=== PATIENT | male | born 1945 | race Caucasian/White ===

== ENCOUNTER 2018-02-17 16:51 | Emergency (ER) | payer OTHER ==
--- NOTE | 2018-02-17 17:00 | PDOC ---
Rapid Medical Evaluation Time Seen by Provider: 02/17/18 16:58 Medical Evaluation: 02/17/18 16:58 I have performed a brief in-person evaluation of this patient. The patient presents with a chief complaint of: right leg swelling ascending up leg x 1 month after being bitten by a bug while working in the garden. Complaining of knee pain and redness of lower leg Pertinent physical exam findings are: NAD even and labored breathing right lower leg edematous and red I have ordered the following: ultrasound of lower leg and labs The patient will proceed o the Ed for further evaluation. 02/17/18 17:04
[2018-02-17 17:03] VITALS: TEMP 98; BMI 33.9
[2018-02-17 17:43] LABS: BASO % 1.3 % (0-2.0); EOS % 3.5 % (0-4.5); HEMOGLOBIN 13.5 GM/dL (11.7-16.9); LYMPH % 22.6 % (8-40); MCH 29.9 pg (25.7-33.7); MCHC 33.7 g/dl (32.0-35.9); MEAN CELL VOLUME 88.7 fl (80-96); MEAN PLT VOLUME 8.3 fl (7.5-11.1); MONO % 9.4 % (3.8-10.2); NEUT % 63.2 % (42.8-82.8); PLATELET COUNT 251 K/MM3 (134-434); RBC 4.51 M/mm3 (4.00-5.60); RDW 14.4 % (11.9-15.9); WHITE BLOOD COUNT 8.4 K/mm3 (4.0-10.0)
[2018-02-17 18:21] LABS: ALBUMIN 3.8 g/dl (3.4-5.0); ANION GAP 10 MMOL/L (8-16); BILIRUBIN,TOTAL 0.4 mg/dL (0.2-1.0); BLOOD UREA NITROGEN 20 mg/dL (7-18); CALCIUM 8.6 mg/dL (8.5-10.1); CHLORIDE 109 mmol/L (98-107); CO2 26 mmol/L (21-32); CREATININE 1.1 mg/dL (0.7-1.3); GLUCOSE,RANDOM 80 mg/dL (74-106); POTASSIUM 4.5 mmol/L (3.5-5.1); SGOT/AST 19 U/L (15-37); SGPT/ALT 22 U/L (12-78); SODIUM 145 mmol/L (136-145); TOT PROT 7.1 g/dl (6.4-8.2)
[2018-02-17 18:22] LABS: ALK PHOS 74 U/L (45-117)
[2018-02-17] MEDS ORDERED: APIXABAN 5 MG TABLET PO ONE (19:18)
--- NOTE | 2018-02-17 19:25 | PDOC ---
History of Present Illness <Monica Shoemaker - Last Filed: 02/17/18 19:18> - General History Source: Patient Exam Limitations: No Limitations - History of Present Illness Initial Comments: 02/17/18 20:02 The patient is a 72-year-old male, with no past medical history, who presents to the ED with RLE swelling and tightness behind his leg that began 3 weeks ago. During this time, the patient reports that he was gardening and noted a bug bite to his leg; he denies seeing the bug or a tick. Since then his leg has become progressively more swollen. He denies any recent travel or DVTs. The patient denies any fever, chills, nausea, vomiting, diarrhea, constipation, or abdominal pain. Denies chest pain, shortness of breath, headache and dizziness. Allergies: NKA Surgical History: Appendectomy. Social History: None reported. PCP: Dr. Atul Baig <Yee Bergeron - Last Filed: 02/17/18 20:39> - General Chief Complaint: Edema Stated Complaint: BITE Time Seen by Provider: 02/17/18 16:58 Past History - Past Medical History COPD: No - Surgical History Appendectomy: Yes - Suicide/Smoking/Psychosocial Hx Smoking History: Former smoker Have you smoked in the past 12 months: No Information on smoking cessation initiated: No <Monica Shoemaker - Last Filed: 02/17/18 19:18> <Yee Bergeron - Last Filed: 02/17/18 20:39> - Past Medical History Allergies/Adverse Reactions: Allergies Allergy/AdvReac Type Severity Reaction Status Date / Time No Known Allergies Allergy Verified 02/17/18 16:59 Home Medications: Ambulatory Orders Apixaban [Eliquis -] 10 mg PO BID #28 tablet 02/17/18 Multivitamin [Multiple Vitamins] 1 each PO DAILY 02/17/18 Review of Systems - Review of Systems Able to Perform ROS?: Yes Comments:: 02/17/18 20:11 GENERAL/CONSTITUTIONAL: No fever or chills. No weakness. HEAD, EYES, EARS, NOSE AND THROAT: No change in vision. No ear pain or discharge. No sore throat. CARDIOVASCULAR: No chest pain or shortness of breath. RESPIRATORY: No cough, wheezing, or hemoptysis. GASTROINTESTINAL: No nausea, vomiting, diarrhea or constipation. GENITOURINARY: No dysuria, frequency, or change in urination. MUSCULOSKELETAL: No joint swelling or pain. No neck or back pain. EXTREMITIES: (+)Right leg swelling, tightness behind leg. SKIN: No rash NEUROLOGIC: No headache, vertigo, loss of consciousness, or change in strength/ sensation. ENDOCRINE: No increased thirst. No abnormal weight change. HEMATOLOGIC/LYMPHATIC: No anemia, easy bleeding, or history of blood clots. ALLERGIC/IMMUNOLOGIC: No hives or skin allergy. <Yee Bergeron - Last Filed: 02/17/18 20:39> *Physical Exam - Vital Signs Last Vital Signs Temp Pulse Resp BP Pulse Ox 98 F 74 18 141/89 96 02/17/18 17:01 02/17/18 17:01 02/17/18 17:01 02/17/18 17:01 02/17/18 17:01 <Monica Shoemaker - Last Filed: 02/17/18 19:18> - Vital Signs Last Vital Signs Temp Pulse Resp BP Pulse Ox 98 F 74 18 141/89 96 02/17/18 17:01 02/17/18 17:01 02/17/18 17:01 02/17/18 17:01 02/17/18 17:01 - Physical Exam Comments: 02/17/18 20:17 GENERAL: Awake, alert, and fully oriented, in no acute distress HEAD: No signs of trauma EYES: PERRLA, EOMI, sclera anicteric, conjunctiva clear ENT: Auricles normal inspection, hearing grossly normal, nares patent, oropharynx clear without exudates. Moist mucosa NECK: Normal ROM, supple, no lymphadenopathy, JVD, or masses LUNGS: Breath sounds equal, clear to auscultation bilaterally. No wheezes, and no crackles HEART: Regular rate and rhythm, normal S1 and S2, no murmurs, rubs or gallops ABDOMEN: Soft, nontender, normoactive bowel sounds. No guarding, no rebound. No masses EXTREMITIES: (+)RLE 2x the size of the LLE, swelling into foot. No signs of erytheme migrans. Pedal pulses intact, sensation intact, FROM. No calf tenderness. No clubbing or cyanosis. No cords. NEUROLOGICAL: Cranial nerves II through XII grossly intact. Normal speech, normal gait SKIN: Warm, Dry, normal turgor. <Yee Bergeron - Last Filed: 02/17/18 20:39> ED Treatment Course - LABORATORY CBC & Chemistry Diagram: 02/17/18 17:15 02/17/18 17:15 - ADDITIONAL ORDERS Additional order review: Laboratory Results 02/17/18 17:15 Sodium 145 Potassium 4.5 Chloride 109 H Carbon Dioxide 26 Anion Gap 10 BUN 20 H Creatinine 1.1 Creat Clearance w eGFR > 60 Random Glucose 80 Calcium 8.6 Total Bilirubin 0.4 AST 19 ALT 22 Alkaline Phosphatase 74 Total Protein 7.1 Albumin 3.8 02/17/18 17:15 RBC 4.51 MCV 88.7 MCHC 33.7 RDW 14.4 MPV 8.3 Neutrophils % 63.2 Lymphocytes % 22.6 Monocytes % 9.4 Eosinophils % 3.5 Basophils % 1.3 <Monica Shoemaker - Last Filed: 02/17/18 19:18> - LABORATORY CBC & Chemistry Diagram: 02/17/18 17:15 02/17/18 17:15 - ADDITIONAL ORDERS Additional order review: Laboratory Results 02/17/18 17:15 Sodium 145 Potassium 4.5 Chloride 109 H Carbon Dioxide 26 Anion Gap 10 BUN 20 H Creatinine 1.1 Creat Clearance w eGFR > 60 Random Glucose 80 Calcium 8.6 Total Bilirubin 0.4 AST 19 ALT 22 Alkaline Phosphatase 74 Total Protein 7.1 Albumin 3.8 02/17/18 17:15 RBC 4.51 MCV 88.7 MCHC 33.7 RDW 14.4 MPV 8.3 Neutrophils % 63.2 Lymphocytes % 22.6 Monocytes % 9.4 Eosinophils % 3.5 Basophils % 1.3 <Yee Bergeron - Last Filed: 02/17/18 20:39> Medical Decision Making - Medical Decision Making 02/17/18 19:19 a/p: 72yo male with RLE swelling x 3 weeks. -concern for poss DVT given tightness behind his leg and swelling R leg -pt states he was outside gardening 3 weeks ago - got a bug bite to the RLE - did not see the bug and did not see a tic -pt states he was not as active since -now with RLE swelling and tightness -labs and ultrasound sent from [facility] -no rashes, however will add lyme titer 02/17/18 19:20 ultrasound +dvt will start eliquis for anticoag no hx of intracranial bleeding, no hx of gi bleeding no fam hx of blood clots will need vascular and hematology follow up 02/17/18 19:25 will send hypercoag labs <Monica Shoemaker - Last Filed: 02/17/18 19:18> *DC/Admit/Observation/Transfer - Discharge Dispostion Decision to Admit order: No - Attestations Physician Attestion: 02/17/18 19:29 I, Dr. Monica Shoemaker, DO, attest that this document has been prepared under my direction and personally reviewed by me in its entirety. I further attest, that it accurately reflects all work, treatment, procedures and medical decision -making performed by me. <Monica Shoemaker - Last Filed: 02/17/18 19:18> - Attestations Scribe Attestion: 02/17/18 20:39 Documentation prepared by Yee Bergeron, acting as medical insurance clerk for Monica Shoemaker DO. <Yee Bergeron - Last Filed: 02/17/18 20:39> Diagnosis at time of Disposition: DVT (deep venous thrombosis) - Discharge Dispostion Disposition: HOME Condition at time of disposition: Stable - Prescriptions Prescriptions: Apixaban [Eliquis -] 10 mg PO BID #28 tablet - Referrals Referrals: Atul Baig MD [Primary Care Provider] - Cristian Buchanan MD [Staff Physician] - Jarocho El MD [Staff Physician] - - Patient Instructions Printed Discharge Instructions: DI for Deep Vein Thrombosis Additional Instructions: Please take the eliquis as prescribed. You are receiving your first week of eliquis. You need to follow up with your PMD, the vascular surgeon, and the oil lease buyer in the next week. Please return to the ED with any further concerns or complaints. Your Lyme test is pending. Please call medical records for your results. - Post Discharge Activity
[2018-02-17 20:31] VITALS: BP 135/85; PULSE 64
== END 2018-02-17 20:31 | disposition home or self-care (01) ==
LOC: JER 16:51
DX: I82.4Z1 Acute embolism and thrombosis of unspecified deep veins of right distal lower extremity (principal); I82.431 Acute embolism and thrombosis of right popliteal vein; Z87.891 Personal history of nicotine dependence
CPT/HCPCS: 36415; 80053; 81241; 85025; 85303; 85305; 85306; 85613; 85732; 86618; 87040; 93971-TC; 99283-25

== ENCOUNTER 2021-10-29 14:14 | Emergency (ER) | payer OTHER ==
[2021-10-29 14:42] VITALS: BP 125/83; PULSE 54; TEMP 98.2; BMI 33.2
[2021-10-29 18:24] LABS: BASO % 0.8 % (0-2.0); EOS % 7.5 % (0-4.5); HEMATOCRIT 41.6 % (35.4-49); HEMOGLOBIN 14.1 GM/dL (11.7-16.9); LYMPH % 26.1 % (8-40); MCH 30.5 pg (25.7-33.7); MEAN CELL VOLUME 89.7 fl (80-96); MEAN PLT VOLUME 8.1 fl (7.5-11.1); MONO % 10.1 % (3.8-10.2); NEUT % 55.5 % (42.8-82.8); PLATELET COUNT 194 10^3/uL (134-434); RBC 4.64 M/mm3 (4.00-5.60); RDW 13.5 % (11.9-15.9)
[2021-10-29 18:44] LABS: BLOOD UREA NITROGEN 21.1 mg/dL (7-18)
[2021-10-29 18:47] LABS: CREATININE 1.1 mg/dL (0.55-1.3)
[2021-10-29 20:05] LABS: INR 1.19 (0.83-1.09); PROTHROMBIN TIME (PATIENT) 13.7 SEC (9.7-13.0)
== END 2021-10-29 23:13 | disposition home or self-care (01) ==
LOC: JERFT 14:14
DX: M71.20 Synovial cyst of popliteal space [Baker], unspecified knee (principal)
CPT/HCPCS: 36415; 71260-TC; 73030-TC-RT-FY; 80048; 85025; 85610; 85730; 99285-25; Q9967